=== PATIENT | female | born 1950 | race Caucasian/White ===

== ENCOUNTER 2017-06-08 03:10 | Emergency (ER) | payer BC, OTHER ==
[~2017-06-08] VITALS: Ht 162.6 cm; Wt 76.0 kg
[~2017-06-08 03:10] MED LIST: ERYT.5%O RIGHT EYE; FOSI10TA4 PO; LEVO.15 PO
[2017-06-08 03:19] VITALS: BP 175/84; PULSE 78; RESP 18; TEMP 97.6; O2SAT 96
[2017-06-08 03:29] VITALS: BP 175/84; PULSE 78; RESP 18; TEMP 97.6; O2SAT 96
[2017-06-08] MEDS ORDERED: ORPHENADRINE INJ 60 MG/2 ML AMP IM ONE (03:30)
[2017-06-08] MEDS ORDERED: KETOROLAC TROMETHAMINE 60 MG/2 ML (IM) VIAL IM ONE (03:30)
[2017-06-08] MEDS ORDERED: LEVO150T7 PO (03:48)
[2017-06-08] MEDS ORDERED: FOSI10TA PO (03:48)
[2017-06-08] MEDS ORDERED: HYDR-3533 PO (03:48)
[2017-06-08 04:30] VITALS: BP 160/81; PULSE 68; RESP 16; O2SAT 97
--- NOTE | 2017-06-08 04:45 | RADRPT ---
EXAM DATE/TIME: 06/08/2017 04:22 [facility] COMPARISON: No previous studies available for comparison. INDICATIONS : Lower back pain. MEDICAL HISTORY : None. SURGICAL HISTORY : None. ENCOUNTER: Initial ACUITY: 2 months PAIN SCORE: 5/10 LOCATION: lumbar FINDINGS: Two view examination was performed. There are five non-rib bearing vertebral bodies. The vertebral bodies are in normal alignment without evidence of subluxation or scoliosis. The disc spaces are daryl ntained. The pedicles are intact. Bony mineralization is normal. No fracture is identified. Mild m ultilevel osteophyte formation and moderate facet hypertrophic changes. CONCLUSION: No acute disease. Du Manzanares MD on June 08, 2017 at 4:43 Board Certified Radiologist. This report was verified electronically.
--- NOTE | 2017-06-08 04:45 | RADRPT ---
EXAM DATE/TIME: 06/08/2017 04:12 [facility] COMPARISON: No previous studies available for comparison. INDICATIONS : Left hip pain. MEDICAL HISTORY : None. SURGICAL HISTORY : None. ENCOUNTER: Initial ACUITY: 2 months PAIN SCORE: 5/10 LOCATION: Left hip FINDINGS: Normal bone density. No fractures. Osteoarthritis of the bilateral hips. CONCLUSION: No acute disease. Du Manzanares MD on June 08, 2017 at 4:43 Board Certified Radiologist. This report was verified electronically.
--- NOTE | 2017-06-08 04:56 | PD ---
HPI Chief Complaint: Pain: Acute or Chronic Time Seen by Provider: 03:29 Travel History International Travel<30 days: No Contact w/Intl Traveler<30days: No Traveled to known affect area: No History of Present Illness HPI 66-year-old female with chronic back pain presents to the emergency department for complaint of increased low back pain radiating to the left buttock and left lower extremity. Patient reports that she takes Lortab at bedtime routinely for chronic back pain. Patient states occasionally she will take 2 Lortab and a 24-hour period. Patient reports that in March she had a non-syncopal slip and fall landing on her left buttock. Patient states that over time she felt that this injury would resolve itself and was not evaluated for the injury by her provider or through emergency department. Patient denies any lower extremity numbness tingling or weakness. Patient's had no bladder or bowel dysfunction. Patient denies any saddle anesthesia. Patient does note that this morning after awakening to get up to go to work that she had increased pain into her left buttock radiating down her left lower extremity causing her severe pain. Patient had noted escalating symptoms over the past week but not this severe. Patient decided to come to the emergency room to be evaluated. Patient did not take any ibuprofen or any additional Lortab. Patient rates her pain 9/10 in intensity. Patient has not noticed any redness or swelling to the left hip and has not had any fever or chills. Patient is not diabetic. As well as chronic pain syndrome patient has history of hypertension and hypothyroidism. Patient did not take any of her morning medications. Patient notes that movement worsens her symptoms and does not identify alleviating factors. PFSH Past Medical History Narrative Medical Chronic pain syndrome hypertension hypothyroidism anxiety depression hyperglycemia-diet controlled; occasional alcohol use; nursing notes reviewed Anxiety: Yes Depression: Yes Cardiovascular Problems: Yes (HTN) High Cholesterol: Yes Diabetes: Yes (NEWLY DIAGNOSED 12/2008- DIET CONTROLLED) Patient Takes Glucophage: No Diminished Hearing: No Hypertension: Yes Musculoskeletal: Yes (CHRONIC LUMBAR PAIN) Thyroid Disease: Yes Menopausal: Yes Tubal Ligation: Yes Social History Alcohol Use: Yes (OCCASIONALLY) Tobacco Use: No Substance Use: No Allergies-Medications (Allergen,Severity, Reaction): Coded Allergies: No Known Allergies (Verified , 06/08/17) Reported Meds & Prescriptions Reported Meds & Active Scripts Active Reported Lortab (Hydrocodone-Acetaminophen) 5-325 Mg Tab 1 Tab PO Q4H PRN Levothyroxine (Levothyroxine Sodium) 150 Mcg Tab 150 Mcg PO DAILY Fosinopril (Fosinopril Sodium) 10 Mg Tab 10 Mg PO DAILY Review of Systems Except as stated in HPI: all other systems reviewed are Neg General / Constitutional: No: Fever HENT: No: Congestion Cardiovascular: No: Chest Pain or Discomfort Respiratory: No: Shortness of Breath Gastrointestinal: No: Abdominal Pain Genitourinary: No: Flank Pain Musculoskeletal: Positive: Cramping, Pain (lumbar back, left hip, left lower extremity pain), No: Weakness Neurologic: No: Weakness, Dizziness, Syncope, Focal Abnormalities, Coordination Problem, Paresthesia, Incontinence, Sensory Disturbance Psychiatric: Positive: Anxiety Hematologic/Lymphatic: No: Lymph Node Enlargement Physical Exam Narrative GENERAL: SKIN: Warm and dry. HEAD: Normocephalic. EYES: No scleral icterus. No injection or drainage. NECK: Supple, trachea midline. No JVD or lymphadenopathy. CARDIOVASCULAR: Regular rate and rhythm without murmurs, gallops, or rubs. RESPIRATORY: Breath sounds equal bilaterally. No accessory muscle use. GASTROINTESTINAL: Abdomen soft, non-tender, nondistended. MUSCULOSKELETAL: No cyanosis, or edema. Bilateral radial and dorsalis pedis pulses 2+ to palpation. BACK: Tender lumbar spine without obvious deformity. Tender SI joint to palpation. Positive straight leg raising. Motor 5 over 5 bilateral lower extremities. DTRs 2+ and equal bilateral lower extremities, Achilles without clonus. Sensory exam intact. No CVA tenderness. Data Data Last Documented VS Vital Signs Date Time Temp Pulse Resp B/P Pulse Ox O2 Delivery O2 Flow Rate FiO2 06/08/17 03:40 18 06/08/17 03:29 97.6 78 175/84 96 Orders Spine, Lumbar - Ltd (Ap & Lat) (06/08/17 ) Ketorolac Inj (Toradol Inj) (06/08/17 03:30) Orphenadrine Inj (Norflex Inj) (06/08/17 03:30) Hip, Uni(Ap&Lat) W Ap Pelvis (06/08/17 ) Oxycodone-Acetamin 5-325 Mg (Percocet (06/08/17 05:00) MDM Medical Decision Making Medical Screen Exam Complete: Yes Emergency Medical Condition: Yes Medical Record Reviewed: Yes Interpretation(s) Left hip with pelvis x-ray: no acute bony injury Lumbar spine x-ray: Degenerative changes Differential Diagnosis Sciatica piriformis syndrome HNP DDD exacerbation low back pain sacroiliitis bursitis; also to consider septic arthritis although patient does not have localized joint pain Narrative Course Patient administered Toradol 60 mg IM and Norflex 60 mg IM; imaging studies ordered It is 4:50 AM patient reassessed Diagnosis Primary Impression: Sciatica of left side Referrals: Primary Care Physician call for appointment Patient Instructions: Narcotic given in the ED, General Instructions Departure Forms: Tests/Procedures, Work Release Special Instructions: no work x 3 days Additional Instructions: Apply moist heat to low back intermittently No work 3 days Take weight-based ibuprofen 800 mg as often as every 8 hours for pain associated with inflammation Take muscle relaxant as prescribed as needed for muscle spasm Continue chronic pain medication as prescribed as needed Follow-up with primary care provider call office in a.m. to schedule follow-up appointment Return to the emergency for free concerns or change in condition Disposition: 01 DISCHARGE HOME Condition: Stable Nevaeh Camacho MD Jun 08, 2017 04:56
[2017-06-08] MEDS ORDERED: oxyCODONE/ACETAMINOPHEN 5 MG/325 MG TAB PO ONE (05:00)
[2017-08-03] MEDS ORDERED: FLUO1TAB3 PO (14:21)
[2017-08-03] MEDS ORDERED: SIMV20TA PO (14:21)
[2017-08-03] MEDS ORDERED: OMEP20TA PO (14:21)
== END 2017-06-08 05:16 | disposition home or self-care (01) ==
LOC: PHED 03:10
DX: M54.32 Sciatica, left side (principal); I10 Essential (primary) hypertension; E03.9 Hypothyroidism, unspecified; G89.4 Chronic pain syndrome; E78.00 Pure hypercholesterolemia, unspecified; E11.9 Type 2 diabetes mellitus without complications
CPT/HCPCS: 72100; 73502; 96372; 99284; J1885; J2360